=== PATIENT | female | born 1990 | race Asian ===

== ENCOUNTER 2020-03-15 14:37 | Emergency (ER) | payer OTHER ==
[~2020-03-15] VITALS: Ht 157.5 cm; Wt 54.4 kg
--- NOTE | 2020-03-15 15:00 | NUR ---
Patient ambulated with stable gait. A/Ox4. Speech is clear, speaks in complete sentences. No acute neuro deficits. Patient came for COVID-19 testing. 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 Patient here to be cleared to work after this test. Patient presents asymptomatic at this time, no fever, chills, sob, any cp.
[2020-03-15 15:12] LABS: *URINE HCG, QUAL NEGATIVE (NEGATIVE)
--- NOTE | 2020-03-15 15:28 | NUR ---
Patient discharged to home in stable condition. Written and verbal after care instructions given. Patient verbalizes understanding of instructions. Stressed follow up or return to ER for worsening s/s. Patient ambulated with stable gait.
[2020-03-15 15:30] VITALS: BP 121/75
--- NOTE | 2020-03-17 02:57 | NUR ---
Received call from [employer] (Lab) that employee tested negative for Covid 19. Notified Jayna Employee Health Director at [facility].
== END 2020-03-15 15:36 | disposition home or self-care (01) ==
LOC: ER 14:37
DX: Z09 Encounter for follow-up examination after completed treatment for conditions other than malignant neoplasm (principal); Z86.19 Personal history of other infectious and parasitic diseases
CPT/HCPCS: 84703; 99283; U0003; A4663